=== PATIENT | male | born 1960 | race Two or more races ===

== ENCOUNTER 2017-05-16 13:22 | Emergency (ER) | payer SELFPAY ==
--- NOTE | 2017-05-16 13:51 | EDPHY ---
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 He notes ecchymotic discoloration to this area. He is otherwise feeling well however. He denies: Arm pain, fever, chills, abdominal pain, diaphoresis, chest pain, nausea, vomiting, headache PRIMARY CARE PROVIDER: Valentín REVIEW OF SYSTEMS: A ten point review of systems was performed and is negative with the exception of the items mentioned in the HPI PAST MEDICAL & SURGICAL HISTORY: No pertinent medical or surgical history SOCIAL HISTORY: Works in construction. PHYSICAL EXAM (Prior to examination, patient consented to physical exam, hands were washed and my usual and customary physical exam procedures followed) 1) GENERAL: Well-developed, well-nourished, alert and oriented. Appears to be in no acute distress. Smiling, shakes my hand 2) HEAD: Normocephalic, atraumatic 3) HEENT: Pupils equal, round, reactive to light bilaterally. Sclera anicteric. 4) NECK: Full range of motion, no meningeal signs. 5) LUNGS: Clear auscultation bilaterally, no wheezes, no rhonchi, no retractions. 6) HEART: Regular rate and rhythm, no murmur, no heave, no gallop. 7) ABDOMEN: No guarding, no rebound, no focal tenderness, , 8) MUSCULOSKELETAL: right medial bicep is minimally appreciable puncture wound x1, no visible failing bites, there is ecchymosis which appears subacute in this area. There is no evidence of necrosis or cellulitis. Compartments are soft. There is no lymphangitic streaking. There is no fluctuance. No erythema. Distal neurovascular status is present with brisk pulses and capillary refill . 9) BACK: [no visual or palpable abnormality. 10) SKIN: [No rash, no petechiae. DIFFERENTIAL DIAGNOSIS: In no particular order including but not limited to ecchymosis, cellulitis, recluse spider envonemation, spider envonemation Smoking Status: Never smoked Constitutional: Initial Vital Signs Temperature (C) 36.6 C 05/16/17 13:29 Heart Rate 76 05/16/17 13:29 Respiratory Rate 18 05/16/17 13:29 Blood Pressure 176/96 H 05/16/17 13:29 O2 Sat (%) 97 05/16/17 13:29 O2 Delivery Mode Room Air Allergies/Adverse Reactions: No Known Allergies Allergy (Unverified 05/16/17 13:29) Home Medications: Medication Instructions Recorded NK [No Known Home Meds] 05/16/17 ED Images - Extremities Full Arm Front Right: 1 - Puncture wound MDM/Departure - MDM ED Course/Re-evaluation: Discussed case with Dr. Magdi Marroquin in the ER. This patient appears well overall. He is noted to have ecchymosis which appears subacute think is less than likely related to his suspected spider bite. There is no evidence of tissue necrosis. There is no evidence of spider envenomation. There is no evidence of infection or cellulitis. However, I have outlined the extent of ecchymosis and I recommended that if he develops change in symptoms, if you developed abdominal pain, tissue discoloration, pain, to return to the closest emergency department for re-evaluation. He has been informed that his physical exam findings may casino change attendant the next few days and the importance of close follow-up. - Depart Disposition: Home, Routine, Self-Care Clinical Impression: possible spider bite Contusion Qualifiers: Encounter type: initial encounter Contusion area: upper arm Laterality: right Qualified Code(s): S40.021A - Contusion of right upper arm, initial encounter Condition: Good Instructions: Insect Bite or Sting (ED), Contusion in Adults (ED) Additional Instructions: If you develop abdominal pain, if you develop arm pain, if you develop fevers, if you develop red streaks, if you develop any other symptoms you need to seek immediate medical attention in the closest emergency department. Referrals: [facility],. [Clinic] - 2-3 days, call for appt. Print Language: Filipino
[2017-05-16 14:03] VITALS: BP 156/91; PULSE 73; RESP 20; TEMP 98.2; O2SAT 96
== END 2017-05-16 14:05 | disposition home or self-care (01) ==
DX: S40.021A Contusion of right upper arm, initial encounter (principal); X58.XXXA Exposure to other specified factors, initial encounter